=== PATIENT | female | born 1980 | race Two or more races ===

== ENCOUNTER 2022-05-02 05:39 | Day surgery (SDC) | payer BC, SELFPAY ==
[2022-05-01 10:51] VITALS: BMI 33.0
[2022-05-02 06:15] VITALS: BP 137/93; PULSE 63; RESP 16; TEMP 36.1; O2SAT 98
[2022-05-02] MEDS: sodium chloride 0.9% 1,000 ML 30 ML IV (06:29)
--- NOTE | 2022-05-02 06:34 | W.PM.OPSUD ---
Surgery/Procedure H&P Update DATE OF PROCEDURE: May 02, 2022 DATE H&P PERFORMED: 04/30/22 H&P UPDATE INFORMATION: I have reviewed H&P completed within last 30 days, I have examined patient prior to procedure and No changes to prior documentation PREOP DIAGNOSIS: Bleeding per rectum PRIMARY INDICATION FOR PROCEDURE: The same PLANNED PROCEDURE: Operation Date: 05/02/22 07:00 Proposed Procedures p 23983 EGD 59624 colonoscopy, K62.5(Not Applicable) - Pedro Luis Bassett MD s Colonoscopy(Not Applicable) - Pedro Luis Bassett MD
--- NOTE | 2022-05-02 06:47 | ANES.PREANE2 ---
Pre-Anesthetic Assessment Height/Weight: Height 1.78 m Weight 104.326 kg Temp Pulse Resp BP Pulse Ox 97 F L 63 16 137/93 98 05/02/22 06:15 05/02/22 06:15 05/02/22 06:15 05/02/22 06:15 05/02/22 06:15 Preop Diagnosis: Bleeding per rectum Operation Date: 05/02/22 07:00 Proposed Procedures p 21761 EGD 85333 colonoscopy, K62.5(Not Applicable) - Pedro Luis Bassett MD s Colonoscopy(Not Applicable) - Pedro Luis Bassett MD Familial anesthetic complications: none Last intake: Intake Last Liquid Date 05/01/22 Last Liquid Time 23:30 Last Solid Date 04/30/22 Last Solid Time 23:30 Social Alcohol (socially) and No tobacco Airway Submandibular: within normal limits Cervical ROM: within normal limits Mallampati: Class II Dentition: full Pulmonary None reported CV/HEM Hypertension and Murmur None reported GI Gastroesophageal Reflux Disease Metabolic None reported Musc/skel None reported Neuropsych None reported Anesthetic Plan ASA status: 2 Anesthesia: MAC Medications/Allergies Home Medications Medication Instructions Recorded Confirmed Last Taken Type furosemide 20 mg tablet (Lasix) 20 mg PO ONCE PRN tab 04/30/22 05/02/22 04/29/22 History bisacodyl 5 mg tablet,delayed 5 mg PO DAILY PRN 05/01/22 05/02/22 04/29/22 History release (Dulcolax (bisacodyl)) docusate sodium 100 mg capsule 100 mg PO BID 05/01/22 05/02/22 04/30/22 History (Colace) polyethylene glycol 3350 17 4 g PO DAILY 05/01/22 05/02/22 04/30/22 History gram/dose oral powder (Miralax) spironolactone 50 mg tablet 50 mg PO DAILY 05/02/22 05/02/22 Unknown History Allergies Allergy/AdvReac Type Severity Reaction Status Date / Time No Known Allergies Allergy Verified 05/01/22 17:13 Current Medications Generic Name Dose Route Start Last Admin Trade Name Freq PRN Reason Stop Dose Admin Sodium Chloride 1,000 mls @ 30 mls/hr 05/02/22 06:00 05/02/22 06:29 Sodium Chloride 0.9% IV 30 mls/hr .Q24H WAYNE Administration PFSH Anesthesia Family History Mother Cancer CHF (congestive heart failure) Stroke Diabetes Dementia Father Hypertension Social History Smoking and tobacco status: never smoked Data Anesthesia Cardiac Studies: No Data to Display
[2022-05-02 07:25] VITALS: BP 140/95; PULSE 80; RESP 18; TEMP 36.2; O2SAT 95
[2022-05-02 07:42] VITALS: BP 152/93; PULSE 68; RESP 18; O2SAT 98
--- NOTE | 2022-05-02 11:00 | ANE.PACU2 ---
Inpatient post-anesthesia follow up: Airway intact: Yes Vital signs: Temperature 97.2 F Pulse Rate 68 Respiratory Rate 18 Blood Pressure 152/93 Pulse Oximetry 98 Oxygen Delivery Me thod Room Air Oxygen Flow Rate Fraction of Inspir ed Oxygen Hydration adequate: Yes Nausea and vomiting: Yes Pain level: 1 Mental status: Baseline
== END 2022-05-02 07:51 | disposition home or self-care (01) ==
PROVIDERS: PCP Nurse Practitioner Family; Visit Provider Surgery
PROC: 0DJD8ZZ Inspection of Lower Intestinal Tract, Via Natural or Artificial Opening Endoscopic (ICD-10-PCS; CPT 45378; 2022-05-02 07:00)
PROC: 0DJ08ZZ Inspection of Upper Intestinal Tract, Via Natural or Artificial Opening Endoscopic (ICD-10-PCS; CPT 43235; 2022-05-02 07:00)
DX: K62.5 Hemorrhage of anus and rectum (principal); K52.9 Noninfective gastroenteritis and colitis, unspecified; I10 Essential (primary) hypertension; K21.9 Gastro-esophageal reflux disease without esophagitis
CPT/HCPCS: 43239; 45380; 88305; 88342; J2704; J7030

== ENCOUNTER 2022-07-01 11:16 | Outpatient (CLI) | payer BC, SELFPAY ==
--- NOTE | 2022-07-01 11:15 | USCV_ITS ---
Rachael Liao Age: 41 Gender: F : 1980 Exam Date: 07/01/2022 11:42 Ordering Phys: Len Olivia M.D ([email or web address]) Technologist: BROCK Exam Location: [facility] [place] Indication: CHEST PAIN AND SHORTNESS OF BREATH BP: 110 / 78 HR: 55 Rhythm: Sinus Technical Quality: Adequate MEASUREMENTS (Male / Female) Normal Values 2D ECHO LV Diastolic Diameter PLAX 5.0 cm 4.2 - 5.9 / 3.9 - 5.3 cm LV Systolic Diameter PLAX 3.0 cm IVS Diastolic Thickness 1.5 cm 0.6 - 1.0 / 0.6 - 0.9 cm IVS Systolic Thickness 2.0 cm LVPW Diastolic Thickness 1.7 cm 0.6 - 1.0 / 0.6 - 0.9 cm LVPW Systolic Thickness 1.8 cm LVOT Diameter 2.0 cm LV Ejection Fraction 2D Teich 68.9 % LV Ejection Fraction MOD 2C 63.6 % LV Ejection Fraction 2C AL 63.7 % LA Diameter 3.8 cm LA Width 2.9 cm LA Height 5.1 cm RA Width 3.0 cm RA Height 5.0 cm Aorta at Sinotubular Diameter 2.8 cm IVC Diameter 1.8 cm M-MODE Aortic Annulus Diameter 3.1 cm LA Ao Ratio MM 1.2 MV E Point Septal Separation 1.0 cm DOPPLER AV Peak Velocity 120.7 cm/s LVOT Peak Velocity 86.0 cm/s AV Area Cont Eq vti 2.3 cm squared AV Area Cont Eq pk 2.2 cm squared MV Peak Velocity 67.0 cm/s MV Area PHT 3.3 cm squared Mitral E to A Ratio 1.0 MV E' Velocity 62.0 cm/s TR Peak Velocity 211.1 cm/s TR Peak Gradient 17.8 mmHg TR Mean Velocity 178.8 cm/s TR Mean Gradient 13.2 mmHg TR Velocity Time Integral 67.8 cm TV Peak E Velocity 44.0 cm/s Right Atrial Pressure 3.0 mmHg Pulmonary Artery Systolic Pressu 20.8 mmHg PV Peak Velocity 109.0 cm/s RV Acceleration Time 0.1 s RV Ejection Time 0.3 s RV AcT/ET 0.3 FINDINGS Left Ventricle Left ventricle is normal in size. LV systolic function is normal with EF 55 to 60%. No regional wall motion abnormalities are seen. Right Ventricle Normal in size and function Right Atrium Normal in size Left Atrium Normal in size Mitral Valve Normal in structure. Trace mitral regurgitation. Aortic Valve Structurally normal aortic valve. No significant stenosis or regurgitation. Tricuspid Valve Grossly normal. Trace tricuspid regurgitation. Insufficient TR jet to evaluate RVSP. Pulmonic Valve Not well-visualized Pericardium Normal Aorta Normal in size IVC CONCLUSIONS LV systolic function is normal with EF 55 to 60%. Trace mitral regurgitation. Trace tricuspid regurgitation. No comparison studies available Len Olivia MD (Electronically Signed) Final Date: 09 July 2022 21:30 S
== END 2022-07-01 11:17 | disposition home or self-care (01) ==
PROVIDERS: PCP Nurse Practitioner Family; Visit Provider Internal Medicine
DX: R06.02 Shortness of breath (principal); R07.9 Chest pain, unspecified; I08.1 Rheumatic disorders of both mitral and tricuspid valves
CPT/HCPCS: 93306

== ENCOUNTER 2023-01-27 11:22 | Outpatient (CLI) | payer BC, SELFPAY ==
--- NOTE | 2023-01-27 11:45 | US_ITS ---
WS: [id number] Complete ABDOMINAL ULTRASOUND HISTORY: R10.12 - Left upper quadrant pain COMPARISON: None available. Liver: 18.0 cm in length. Mildly enlarged liver with mild hepatic steatosis. No mass identified or bi le duct dilatation. Portal Vein: Normal hepatopetal flow with monophasic waveform. Gallbladder: Abnormal gallbladder. The gallbladder is very difficult to visualize as a fluid-filled s tructure. There is a large amount shadowing from the region of the gallbladder fossa. Most consistent with a stone filled gallbladder. There may be some sludge also present. There is increased echogenic ity within the gallbladder which does not shadow. Gallbladder wall difficult to visualize. No pericho lecystic fluid. CBD: 0.4 cm Pancreas: Normal size and echogenicity. Right kidney: 10.8 cm x 4.5 x 4.8 cm. Cortex:1.4 cm. Normal size and echogenicity. No hydronephrosis or mass. Left kidney: 11.3 cm x 4.9 cm x 5.5 cm. Cortex: 1.6 cm No mass, cortical thickening or hydronephrosis. Spleen: Normal size and echogenicity. Aorta and IVC: Unremarkable abdominal aorta and IVC. US/US abdomen complete* [id number] Impression: 1. Abnormal gallbladder. Gallbladder is contracted around stones. There is add itional nonshadowing echogenic material within the gallbladder which may be slu dge. Mass cannot be completely excluded. Recommend surgical evaluation and chol ecystectomy. 2. No bile duct dilatation. 3. Mild hepatic steatosis and hepatomegaly.
== END 2023-01-27 11:23 | disposition home or self-care (01) ==
PROVIDERS: PCP Family Medicine; Visit Provider Family Medicine
DX: R10.12 Left upper quadrant pain (principal); R16.1 Splenomegaly, not elsewhere classified; K76.0 Fatty (change of) liver, not elsewhere classified; R16.0 Hepatomegaly, not elsewhere classified; Z13.6 Encounter for screening for cardiovascular disorders; Z13.220 Encounter for screening for lipoid disorders; I10 Essential (primary) hypertension
CPT/HCPCS: 76700; 80053; 80061; 82977; 83690; 85025

== ENCOUNTER 2023-03-23 05:55 | Day surgery (SDC) | payer BC, SELFPAY ==
[2023-03-17 13:48] VITALS: BMI 31.4
[2023-03-23] VITALS (13 sets, daily range): BP systolic 120–141; BP diastolic 66–87; PULSE 47–71; RESP 16–20; TEMP 36.6–36.7; O2SAT 92–98
[2023-03-23] MEDS: sodium chloride 0.9% 1,000 ML 30 ML IV (06:42)
[2023-03-23 06:47] LABS: OR HCG Qualitative Urine Negative (Negative)
[2023-03-23 07:06] LABS: Blood Urea Nitrogen 13 mg/dL (6-20); Calcium 8.9 mg/dL (8.5-10.5); Carbon Dioxide 22 mmol/L (22-29); Chloride 107 mmol/L (98-107); Glomerular Filtration Rate 78.7 mL/min (90-130); Glucose 91 mg/dL (65-115); Osmolality Calculated 290 mOsm/kg (285-295); Sodium 140 mmol/L (136-145)
--- NOTE | 2023-03-23 07:07 | P.HP_ITS ---
Providers/Chief Complaint Primary Care Provider: Matilda Avila MD Chief Complaint: 54655 K80.20 History of Present Illness Rachael Liao is a 42 year old female here for laparoscopic cholecystectomy for symptomatic cholelithiasis Medications/Allergies Home Medications Medication Instructions Recorded Confirmed Last Taken Type polyethylene glycol 3350 17 4 g PO DAILY 05/01/22 03/17/23 03/22/23 History gram/dose oral powder (Miralax) furosemide 20 mg tablet (Lasix) 20 mg PO DAILY PRN Edema 90 days 12/09/22 03/17/23 03/17/23 Rx #90 tabs spironolactone 100 mg tablet 100 mg PO DAILY 90 days #90 tabs 12/09/22 03/17/23 03/17/23 Rx pantoprazole 40 mg tablet,delayed 40 mg PO BID 90 days #180 tabs 12/21/22 03/17/23 03/17/23 Rx release (Protonix) losartan 25 mg tablet 25 mg PO DAILY 30 days #30 tabs 12/24/22 03/17/23 03/16/23 Rx docusate sodium 100 mg capsule 100 mg PO DAILY 03/17/23 03/17/23 03/17/23 History (Colace) omega 2-bcd-bdz-fish oil 1,200 mg 1 cap PO DAILY 03/17/23 03/23/23 03/20/23 History (144 mg-216 mg) capsule (Fish Oil) Allergies Allergy/AdvReac Type Severity Reaction Status Date / Time lisinopril Allergy Mild ALGY-Rash Verified 02/24/23 07:33 PFSH Acute PFSH: Medical History Heart murmur Surgical History Hx of removal of ovary 2016 left falopian tube Family History Mother Cancer CHF (congestive heart failure) Stroke Diabetes Dementia Hypertension Father Hypertension Family history of premature coronary artery disease Sister Bleeding disorder and anemia/ Grandmother Diabetes maternal Grandfather Diabetes maternal Denies family history of Thyroid disease Social History Smoking and tobacco status: former smoker Female Reproductive History: Date of last menstrual period: 02/27/23 Vitals/I&O/Wt Last Vital Signs O2 Del Method Room Air 03/23/23 06:13 Data 03/23/23 06:30 A&P Assessment and plan (1) Symptomatic cholelithiasis: Plan Laparoscopic cholecystectomy Attestations Medical Necessity Statement*: HOME Coding Level of Care Code Acute Code for [facility] Diagnoses Symptomatic cholelithiasis K80.20
[2023-03-23] MEDS: ceFAZolin 2,000 MG in sodium chloride 0.9% (plus) 50 ML 100 MG IV (07:08)
[2023-03-23 07:10] LABS: Anion Gap 15.1 (5-19); Potassium 4.1 mmol/L (3.5-5.1)
[2023-03-23] MEDS: lidocaine-epi 2% 20 mL INJ 7 ML INJECTION (07:39)
--- NOTE | 2023-03-23 08:10 | P.OP_ITS ---
Operative Report Date of procedure: March 23, 2023 Pre-op diagnosis: Preop Diagnosis symptomatic cholelithiasis Post-op diagnosis: same Procedure done: Laparoscopic cholecystectomy Specimens removed/disposition: Gallbladder Surgeon: Dr. Johnathan Turcios DO Anesthesia: General Estimated blood loss (mL): 5 Complications: None apparent Brief History: This is a very pleasant 42-year-old female who presented my office with symptomatic cholelithiasis. Laparoscopic cholecystectomy was indicated. The risk and benefits were explained and documented. Procedure: Patient was wheeled into the operative room and placed on the OR table in a supine position. Abdomen was inspected prepped and draped in usual sterile fashion. Time-out was performed and all present were in agreement. A 15 blade scalp was used to make a stab incision in the left upper quadrant and intra- abdominal insufflation was achieved using a Veress needle. After localizing the tissue incisions were made and a 5 millimeter trocar was placed into the umbilicus as well as 2 in the right upper quadrant. A 12 millimeter trocar was placed in the epigastrium. Gallbladder was grasped and elevated. The triangle of Calot was carefully dissected using blunt dissection and electrocautery until the triangle of Calot clearly identified. The cystic duct was clipped proximally and double clipped distally. The duct was then ligated proximally. The cystic artery was doubly clipped and ligated. The gallbladder was then removed from the liver bed using electrocautery. The gallbladder was removed from the abdomen using an Endo-Catch bag through the epigastric incision. The liver bed was inspected and no bleeding was seen. The abdomen was irrigated and suctioned. All ports removed. Skin was washed and dried. Incisions were closed with 3-0 and 4-O Monocryl in a subcuticular interrupted fashion. Skin glue was applied. Patient tolerated the procedure well.
[2023-03-23] MEDS: fentaNYL 50 mcg/mL INJ 2mL IVP (08:40)
[2023-03-23] MEDS: HYDROcodone-acetaminophen 7.5-325 mg Tablet 1 TAB PO (09:09)
[2023-03-23] MEDS: ondansetron 2 mg/ML SDV 2 mL 4 MG IVP (09:11)
--- NOTE | 2023-03-23 09:58 | ANES.PREANE2 ---
Pre-Anesthetic Assessment Height/Weight: Height 1.78 m Weight 99.337 kg Temp Pulse Resp BP Pulse Ox O2 Del Method 98.1 F 51 L 18 129/77 97 Room Air 03/23/23 08:57 03/23/23 09:39 03/23/23 09:39 03/23/23 09:39 03/23/23 09:39 03/23/23 09:39 Preop Diagnosis: Bleeding per rectum Operation Date: 03/23/23 07:00 Proposed Procedures p 90225 lap genie K80.20(Not Applicable) - Johnathan Turcios DO Familial anesthetic complications: none Was Beta Alejandra taken within 24 hours: N/A Was Clonidine taken within 24 hours: N/A Last intake: Intake Last Liquid Date 03/22/23 Last Liquid Time 22:30 Last Solid Date 03/22/23 Last Solid Time 22:00 Social No alcohol and No tobacco Exam alert, oriented x 3, clear to auscultation bilaterally and regular rate & rhythm Airway Submandibular: within normal limits Cervical ROM: within normal limits Mallampati: Class II Dentition: full CV/HEM Hypertension and Murmur GI Gastroesophageal Reflux Disease Metabolic Morbid Obesity Anesthetic Plan ASA status: 2 Anesthesia: General Medications/Allergies Home Medications Medication Instructions Recorded Confirmed Last Taken Type polyethylene glycol 3350 17 4 g PO DAILY 05/01/22 03/17/23 03/22/23 History gram/dose oral powder (Miralax) furosemide 20 mg tablet (Lasix) 20 mg PO DAILY PRN Edema 90 days 12/09/22 03/17/23 03/17/23 Rx #90 tabs spironolactone 100 mg tablet 100 mg PO DAILY 90 days #90 tabs 12/09/22 03/17/23 03/17/23 Rx pantoprazole 40 mg tablet,delayed 40 mg PO BID 90 days #180 tabs 12/21/22 03/17/23 03/17/23 Rx release (Protonix) losartan 25 mg tablet 25 mg PO DAILY 30 days #30 tabs 12/24/22 03/17/23 03/16/23 Rx docusate sodium 100 mg capsule 100 mg PO DAILY 03/17/23 03/17/23 03/17/23 History (Colace) omega 1-ygn-pbz-fish oil 1,200 mg 1 cap PO DAILY 03/17/23 03/23/23 03/20/23 History (144 mg-216 mg) capsule (Fish Oil) docusate sodium 100 mg capsule 100 mg PO BID #14 caps 03/23/23 Unknown Rx (DOK) hydrocodone 7.5 mg-acetaminophen 1 tab PO Q6H PRN pain #20 tabs 03/23/23 Unknown Rx 325 mg tablet Allergies Allergy/AdvReac Type Severity Reaction Status Date / Time lisinopril Allergy Mild ALGY-Rash Verified 02/24/23 07:33 Current Medications Generic Name Dose Route Start Last Admin Trade Name Freq PRN Reason Stop Dose Admin Fentanyl 50 mcg 03/23/23 08:42 03/23/23 08:40 Fentanyl 50 Mcg/Ml Inj 2ml IVP 03/24/23 08:42 50 mcg Q5M PRN Administration Pain level 6-10 PACU Phase I Sodium Chloride 1,000 mls @ 30 mls/hr 03/23/23 06:00 03/23/23 06:42 Sodium Chloride 0.9% IV 03/24/23 05:59 30 mls/hr .Q24H WAYNE Administration Ondansetron HCl 4 mg 03/23/23 08:42 03/23/23 09:11 Ondansetron 2 Mg/Ml Sdv 2 Ml IVP 4 mg Q15M PRN Administration Nausea/Vomiting PACU PHASE II [facility] Anesthesia Medical History Heart murmur Surgical History Hx of removal of ovary 2016 left falopian tube Family History Mother Cancer CHF (congestive heart failure) Stroke Diabetes Dementia Hypertension Father Hypertension Family history of premature coronary artery disease Sister Bleeding disorder and anemia/ Grandmother Diabetes maternal Grandfather Diabetes maternal Denies family history of Thyroid disease Social History Smoking and tobacco status: former smoker Female Reproductive History Date of last menstrual period: 02/27/23 Data Anesthesia 03/23/23 06:30 BMP 03/23/23 06:30 Sodium 140 Potassium 4.1 Chloride 107 Carbon Dioxide 22 BUN 13 Creatinine 0.8 Glucose 91 Calcium 8.9 Cardiac Studies: Echocardiogram 07/01/22
--- NOTE | 2023-03-23 13:42 | ANE.PACU2 ---
Inpatient post-anesthesia follow up: Airway intact: Yes Vital signs: Temperature 98.1 F Pulse Rate 51 Respiratory Rate 18 Blood Pressure 129/77 Pulse Oximetry 97 Oxygen Delivery Me thod Room Air Oxygen Flow Rate Fraction of Inspir ed Oxygen Hydration adequate: Yes Nausea and vomiting: No Pain level: 3 Mental status: Baseline
== END 2023-03-23 10:05 | disposition home or self-care (01) ==
PROVIDERS: Anesthesiology; PCP Family Medicine; Visit Provider Surgery
PROC: 0FT44ZZ Resection of Gallbladder, Percutaneous Endoscopic Approach (ICD-10-PCS; CPT 47562; principal; 2023-03-23 07:00)
DX: K80.10 Calculus of gallbladder with chronic cholecystitis without obstruction (principal); Z87.891 Personal history of nicotine dependence; I10 Essential (primary) hypertension; R01.1 Cardiac murmur, unspecified; K21.9 Gastro-esophageal reflux disease without esophagitis; E66.01 Morbid (severe) obesity due to excess calories; Z68.31 Body mass index [BMI] 31.0-31.9, adult
CPT/HCPCS: 47562; 36415; 80048; 84703; 88304; A4216; J0690; J1100; J1170; J1200; J2250; J2405; J2704; J2710; J3010; J3490; J7030

== ENCOUNTER → 2023-06-02 08:34 | Outpatient (BNVA) | payer BC, SELFPAY | PROVIDERS: PCP Family Medicine; Visit Provider Family Medicine | DX: G89.29 Other chronic pain; M25.561 Pain in right knee; M51.36 Other intervertebral disc degeneration, lumbar region | CPT/HCPCS: 72100; 73562 ==

== ENCOUNTER → 2023-08-04 14:58 | Outpatient (BNVA) | payer BC, SELFPAY | PROVIDERS: PCP Family Medicine; Visit Provider Orthopaedic Surgery | DX: M47.816 Spondylosis without myelopathy or radiculopathy, lumbar region (principal); M43.16 Spondylolisthesis, lumbar region | CPT/HCPCS: 72110 ==

== ENCOUNTER 2023-08-11 06:00 | Outpatient (RCR) | payer BC, SELFPAY | END 2023-09-01 23:59 | disposition home or self-care (01) | LOC: MPT 06:00 | PROVIDERS: Visit Provider Orthopaedic Surgery | DX: M54.50 Low back pain, unspecified (principal) | CPT/HCPCS: 97110; 97140; 97161; G0283 ==

== ENCOUNTER → 2023-09-15 13:47 | Outpatient (BNVA) | payer BC, SELFPAY | PROVIDERS: Visit Provider Orthopaedic Surgery | DX: M43.16 Spondylolisthesis, lumbar region (principal) | CPT/HCPCS: 72100 ==

== ENCOUNTER 2023-10-15 15:11 | Outpatient (CLI) | payer BC, SELFPAY ==
--- NOTE | 2023-10-15 15:15 | MR_ITS ---
WS: [id number] MRI LUMBAR SPINE NONCONTRAST TECHNIQUE: Sagittal T1, T2 and STIR imaging. Axial T1 and T2 imaging. CLINICAL INFORMATION: Low Back Pain COMPARISON: None. FINDINGS: Mild lumbar curve. No acute compression. Slight anterolisthesis L4 on L5. No high-grade central canal stenosis. L1-L2: Normal. L2-L3: Mild facet arthropathy. Spinal canal and foramen are patent. L3-L4: No significant disc bulging. Mild facet arthropathy. Spinal canal and foramen are patent. L4-L5: Grade 1 anterolisthesis L4 on L5. Mild annular bulging with slight impingement traversing L5 n erve roots bilaterally. Moderate facet arthropathy with small RIGHT facet effusion. Mild bilateral fo raminal narrowing. L5-S1: Mild annular bulging with slight effacement of the ventral thecal sac. Mild facet arthropathy. Spinal canal and foramen are patent. Visualized pelvic bony structures: Normal. Paravertebral soft tissues: Normal. IMPRESSION: 1. Mild lumbar curve. No acute compression. No high-grade central canal stenosis. 2. Grade 1 anterolisthesis L4 on L5 with mild disc bulging. Slight effacement of the ventral thecal sac. Mild bilateral foraminal narrowing. 3. Moderate facet arthropathy L4-5 with a RIGHT facet effusion compatible with degenerative or infla mmatory synovitis. 4. Mild facet arthropathy L2-3 and L3-4.
== END 2023-10-15 15:12 | disposition home or self-care (01) ==
LOC: RAD 15:11
PROVIDERS: Visit Provider Orthopaedic Surgery
DX: M43.16 Spondylolisthesis, lumbar region (principal); M47.816 Spondylosis without myelopathy or radiculopathy, lumbar region; M51.26 Other intervertebral disc displacement, lumbar region
CPT/HCPCS: 72148

== ENCOUNTER → 2023-11-04 10:06 | Outpatient (BNVA) | payer BC, SELFPAY | PROVIDERS: Visit Provider Family Medicine | DX: K29.70 Gastritis, unspecified, without bleeding (principal); I10 Essential (primary) hypertension; E28.2 Polycystic ovarian syndrome; K29.30 Chronic superficial gastritis without bleeding; R53.83 Other fatigue; G47.10 Hypersomnia, unspecified; M25.50 Pain in unspecified joint; E03.9 Hypothyroidism, unspecified; J44.9 Chronic obstructive pulmonary disease, unspecified | CPT/HCPCS: 80053; 80061; 84443; 85025; 85651; 86038; 86140 ==

== ENCOUNTER → 2023-12-31 14:09 | Outpatient (BNVA) | payer BC, SELFPAY | PROVIDERS: PCP Family Medicine; Visit Provider Family Medicine | DX: R53.83 Other fatigue; M25.50 Pain in unspecified joint; R76.8 Other specified abnormal immunological findings in serum | CPT/HCPCS: 84439; 84443; 84481; 84482; 86376; 86800 ==

== ENCOUNTER → 2024-03-24 14:06 | Outpatient (BNVA) | payer BC, SELFPAY | PROVIDERS: PCP Family Medicine; Visit Provider Family Medicine | DX: M79.671 Pain in right foot (principal) | CPT/HCPCS: 73630 ==

== ENCOUNTER → 2024-05-19 12:38 | Outpatient (BNVA) | payer BC, SELFPAY | PROVIDERS: PCP Family Medicine; Visit Provider Internal Medicine Rheumatology | DX: Z79.899 Other long term (current) drug therapy (principal); M19.90 Unspecified osteoarthritis, unspecified site; E03.9 Hypothyroidism, unspecified; M45.6 Ankylosing spondylitis lumbar region | CPT/HCPCS: 36415; 82306; 84439; 84443; 85651; 86140; 86200; 86431; 86812 ==

== ENCOUNTER → 2024-11-01 10:37 | Outpatient (BNVA) | payer BC, SELFPAY | PROVIDERS: PCP Family Medicine; Referring Provider Family Medicine; Visit Provider Family Medicine | DX: Z79.899 Other long term (current) drug therapy (principal); E03.9 Hypothyroidism, unspecified | CPT/HCPCS: 80076; 82306; 82565; 84439; 84443; 84481; 85025; 85651; 86140; 86376 ==

== ENCOUNTER → 2025-04-05 12:54 | Outpatient (BNVA) | payer BC, SELFPAY | PROVIDERS: Family Provider Family Medicine; PCP Family Medicine; Referring Provider Internal Medicine Rheumatology; Visit Provider Internal Medicine Rheumatology | DX: R76.8 Other specified abnormal immunological findings in serum (principal); M05.79 Rheumatoid arthritis with rheumatoid factor of multiple sites without organ or systems involvement; Z79.899 Other long term (current) drug therapy | CPT/HCPCS: 80076; 82565; 85025; 85651; 86140 ==

== ENCOUNTER 2025-05-04 11:47 | Outpatient (CLI) | payer BC, SELFPAY ==
--- NOTE | 2025-05-04 11:40 | MM_ITS ---
WS: [id number] BILATERAL 3D TOMOSYNTHESIS DIGITAL SCREENING MAMMOGRAPHY WITH CAD CLINICAL INFORMATION: SCREENING HISTORY: Screening mammogram. No current complaints. COMPARISON: New baseline TECHNIQUE: Bilateral CC and MLO views. FINDINGS: The breasts are composed of heterogeneous fibroglandular density tissue, which can limit the detection of small underlying mass lesions. No suspicious mass, asymmetry, calcifications, or architectural distortion. No evidence of malignancy. MM/MM scr tomosynthesis [id number] IMPRESSION: DENSITY: The breasts are heterogeneously dense, which may obscure small masses. BI-RADS: 1 - Negative FOLLOW UP: 1 Year Follow-up Recommend return to annual screening mammography.
== END 2025-05-04 11:48 | disposition home or self-care (01) ==
PROVIDERS: Family Provider Family Medicine; PCP Family Medicine; Visit Provider Family Medicine
DX: Z12.31 Encounter for screening mammogram for malignant neoplasm of breast (principal); R92.333 Mammographic heterogeneous density, bilateral breasts
CPT/HCPCS: 77063; 77067

== ENCOUNTER 2025-05-10 11:30 | Outpatient (CLI) | payer BC, SELFPAY ==
[2025-05-10 13:22] LABS: Alanine Aminotransferase 14 U/L (0-33); Albumin Level 4.0 g/dL (3.5-5.2); Alkaline Phosphatase 44 U/L (35-105); Anion Gap 15.7 (5-19); Aspartate Amino Transferase 15 U/L (0-32); Blood Urea Nitrogen 11 mg/dL (6-20); Calcium 9.0 mg/dL (8.5-10.5); Carbon Dioxide 25 mmol/L (22-29); Chloride 106 mmol/L (98-107); Ferritin 17 ng/mL (15-150); Globulin 2.9 g/dL (1.3-4.6); Glucose 86 mg/dL (65-115); Osmolality Calculated 295 mOsm/kg (285-295); Potassium 3.7 mmol/L (3.5-5.1); Sodium 143 mmol/L (136-145); Total Protein 6.9 g/dL (6.6-8.7)
[2025-05-10 13:38] LABS: Vitamin B12 1062 pg/mL (232-1245)
[2025-05-14 12:35] LABS: Vit D 1,25 (Oh)2, Total 29 pg/mL (18-72); Vit D2 1,25 (Oh)2 <8 pg/mL; Vit D3 1,25 (Oh)2 29 pg/mL
[2025-05-16 08:18] LABS: Zinc Level, Serum or Plasma 64 mcg/dL (60-130)
== END 2025-05-10 11:31 | disposition home or self-care (01) ==
PROVIDERS: PCP Family Medicine; Visit Provider Nurse Practitioner Family
DX: L65.0 Telogen effluvium (principal)
CPT/HCPCS: 36415; 80053; 82607; 82652; 82728; 82746; 84630

== ENCOUNTER → 2025-07-19 09:45 | Outpatient (BNVA) | payer BC, SELFPAY | PROVIDERS: PCP Family Medicine; Visit Provider Family Medicine | DX: Z12.4 Encounter for screening for malignant neoplasm of cervix (principal) | CPT/HCPCS: 87624 ==

== ENCOUNTER 2025-08-16 12:54 | Outpatient (CLI) | payer BC, SELFPAY ==
--- NOTE | 2025-08-16 13:00 | MR_ITS ---
WS: [id number] MRI HEAD WITH CONTRAST TECHNIQUE: Sagittal T1, T2 axial, T2 axial FLAIR, axial susceptibility weighted imaging, axial diffusion weighted images, and coronal T2 images were obtained. Pre and post-T1 axial and post T1 coronal images. ADC and FSPGR images. CLINICAL INFORMATION: R26.89 - Other abnormalities of gait and mobility COMPARISON: None. FINDINGS: Some imaging is limited due to artifact from braces No evidence of restricted diffusion to suggest acute ischemia. No suspicious intracranial signal abnormalities. Normal corpus callosum. No significant parenchymal volume loss. Normal posterior fossa. Normal vascular flow voids at the skull base. No extra-axial fluid collections. Mastoid air cells are well aerated. No hemosiderin. Temporal lobes and hippocampal formations are normal in appearance. No abnormal gadolinium enhancement. 5-6 mm hypoenhancing focus in the LEFT pituitary suspicious for microadenoma. LEFT to RIGHT deviation of the infundibulum. Recommend correlation with pituitary function studies. This can be further evaluated with MRI pituitary protocol MR/MR head wo/w con [id number] IMPRESSION: Images in the frontal lobes are limited due to significant suscepti bility artifact from braces. Some sequences are limited 1. No evidence of restricted diffusion to suggest acute ischemia. 2. No suspicious intracranial signal abnormalities considering artifact. 3. Corpus callosum is normal in appearance. No visualized callosal lesions. 4. Hypoenhancing focus in the LEFT aspect of the sella measuring 5-6 mm suspic ious for microadenoma. Mild LEFT to RIGHT deviation of the infundibulum. Recomm end correlation with pituitary function studies. This can be followed up with M RI without and with gadolinium enhancement with pituitary protocol although garcía l be limited with braces. 5. No hemosiderin.
[2025-08-16] MEDS: gadobenate dimeglumine 20 mL vial 19 ML IV (13:47)
== END 2025-08-16 12:55 | disposition home or self-care (01) ==
LOC: RAD 12:55
PROVIDERS: PCP Family Medicine; Visit Provider Internal Medicine Rheumatology
DX: R26.89 Other abnormalities of gait and mobility (principal); R32 Unspecified urinary incontinence; E23.6 Other disorders of pituitary gland
CPT/HCPCS: 70553

== ENCOUNTER → 2025-09-21 11:09 | Outpatient (BNVA) | payer BC, SELFPAY | PROVIDERS: PCP Family Medicine; Visit Provider Family Medicine | DX: E03.9 Hypothyroidism, unspecified (principal); M05.79 Rheumatoid arthritis with rheumatoid factor of multiple sites without organ or systems involvement; I10 Essential (primary) hypertension | CPT/HCPCS: 80048; 80061; 80076; 84443; 85025; 85651; 86140 ==

== ENCOUNTER 2025-10-31 07:52 | Outpatient (CLI) | payer BC, SELFPAY ==
[2025-10-31 09:34] LABS: Carbon Dioxide 20 mmol/L (22-29); Chloride 107 mmol/L (98-107); Sodium 141 mmol/L (136-145)
[2025-10-31 09:39] LABS: Anion Gap 17.8 (5-19); Potassium 3.8 mmol/L (3.5-5.1)
[2025-10-31 09:58] LABS: Free T4 Free Thyroxine 0.86 ng/dL (0.82-1.77)
== END 2025-10-31 07:53 | disposition home or self-care (01) ==
PROVIDERS: PCP Family Medicine; Visit Provider Family Medicine
DX: D35.2 Benign neoplasm of pituitary gland (principal); E24.0 Pituitary-dependent Cushing's disease
CPT/HCPCS: 36415; 80051; 82533; 84146; 84305; 84439